=== PATIENT | female | born 1960 | race Caucasian/White ===

== ENCOUNTER → 2017-01-31 | Outpatient (CLI) | payer BC | LOC: MC.RAD 11:29 | DX: Z12.31 Encounter for screening mammogram for malignant neoplasm of breast (principal) ==

== ENCOUNTER 2018-04-06 18:32 | Inpatient (IN) | payer BC ==
[~2018-04-06] VITALS: Ht 172.7 cm; Wt 86.7 kg
[2018-04-06 19:07] VITALS: BP 155/77; PULSE 78; TEMP 98.4
[2018-04-06] MEDS ORDERED: ZOCOR 20MG20 MG PO (19:59)
[2018-04-06 23:13] VITALS: BP 159/80; PULSE 70; TEMP 98.4
[2018-04-07] VITALS (16 sets, daily range): BP systolic 129–154; BP diastolic 60–84; PULSE 59–79; TEMP 98–98.5
[2018-04-07 06:01] LABS: HEMOGLOBIN 12.2 g/dl (12.5-16.0); MEAN CELL VOLUME 88 fl (80.0-100.0); MEAN CORPUSCULAR HEMOGLOBIN 29 pg (27.0-31.0); MEAN CORPUSCULAR HGB CONC 33 g/dl (33.0-37.0); MEAN PLATELET VOLUME 11.7 fl (7.4-10.4); PLATELET COUNT 154 K/mm3 (130-400); RED BLOOD COUNT 4.18 M/mm3 (4.10-5.30); REDCELL DISTRIBUTION WIDTH-CV 14.3 % (11.5-14.5)
[2018-04-07 06:14] LABS: ALBUMIN 3.7 gm/dL (3.5-5.0); BILIRUBIN,TOTAL 2.5 mg/dL (0.0-1.0); CALCIUM 8.8 mg/dL (8.4-10.2); CREATININE, serum 0.87 mg/dL (0.52-1.25); POTASSIUM 4.3 mmol/L (3.4-5.0); TOTAL PROTEIN 6.8 gm/dL (6.4-8.2)
[2018-04-07 06:16] LABS: HEMATOCRIT 36.8 % (37.0-47.0)
== END 2018-04-07 21:30 | disposition home or self-care (01) | DRG 419 ==
LOC: SURG 18:32
PROVIDERS: Internal Medicine Gastroenterology; Surgery
PROC: 0FC98ZZ Extirpation of Matter from Common Bile Duct, Via Natural or Artificial Opening Endoscopic (ICD-10-PCS; 2018-04-07)
PROC: 0FT44ZZ Resection of Gallbladder, Percutaneous Endoscopic Approach (ICD-10-PCS; principal; 2018-04-07 11:30)
DX: K80.46 Calculus of bile duct with acute and chronic cholecystitis without obstruction (principal); E78.5 Hyperlipidemia, unspecified
CPT/HCPCS: C1769; G0378; J0690; J1100; J1610; J1956; J2405; J2704; J2710; J3010; J7030; J7120; Q9967

== ENCOUNTER 2018-06-15 17:23 | Emergency (ER) | payer BC ==
[~2018-06-15] VITALS: Ht 172.7 cm; Wt 86.4 kg
[~2018-06-15 17:23] MED LIST: ZOCOR 20MG20 MG PO
[2018-06-15 17:32] VITALS: TEMP 99.6
[2018-06-15] MEDS ORDERED: NORCO 325 MG-51 TAB PO (19:34)
[2018-06-15 20:00] VITALS: BP 153/80; PULSE 85
== END 2018-06-15 20:02 | disposition home or self-care (01) ==
LOC: COL.ER 17:23
DX: S83.92XA Sprain of unspecified site of left knee, initial encounter (principal); E78.5 Hyperlipidemia, unspecified; X50.0XXA Overexertion from strenuous movement or load, initial encounter
CPT/HCPCS: L1846